=== PATIENT | male | born 1990 | race Caucasian/White ===

== ENCOUNTER 2017-09-29 02:51 | Emergency (ER) | payer SELFPAY ==
[~2017-09-29] VITALS: Ht 177.8 cm; Wt 103.1 kg
[2017-09-29 03:21] LABS: HEMATOCRIT 39.2 % (38.0-50.0); HEMOGLOBIN 13.9 G/DL (12.5-16.6); MCH 29.6 PG (29.0-34.0); MCHC 35.5 G/DL (30.0-36.0); MCV 83.4 FL (86-99); PLATELET COUNT 177 K/uL (156-360); RBC DIS.WIDTH-CV 12.6 % (11.8-14.6); RBC DIS.WIDTH-SD 38.3 % (39-53); WHITE BLOOD COUNT 9.9 K/uL (4.1-10.2)
[2017-09-29 03:31] LABS: ALBUMIN 4.5 g/dL (3.2-4.8); CHLORIDE 106 mEq/L (99-109); POTASSIUM 3.8 mEq/L (3.7-5.4); SODIUM 142 mEq/L (136-147)
[2017-09-29 03:34] LABS: GLUCOSE 111 mg/dL (70-99); TOTAL PROTEIN 7.9 g/dL (6.4-8.3)
[2017-09-29 03:35] LABS: TOTAL BILIRUBIN 0.3 mg/dL (0.0-1.0)
[2017-09-29 03:37] LABS: ALKALINE PHOSPHATASE 75 IU/L (3-129); CREATININE 1.3 mg/dL (0.6-1.3); GFR ESTIMATE (CALCULATED) > 59 mL/min/ (58.99-99999)
[2017-09-29 03:38] LABS: UREA NITROGEN (BUN) 22 mg/dL (9-23)
[2017-09-29 03:39] LABS: AST (GOT) 26 IU/L (2-34)
[2017-09-29 03:40] LABS: ALT (GPT) 45 IU/L (3-49)
[2017-09-29 03:40] LABS: APPEARANCE CLEAR ((CLEAR)); BILIRUBIN NEGATIVE; BLOOD LARGE; COLOR STRAW ((YELLOW)); GLUCOSE (STRIP) NEGATIVE; KETONES NEGATIVE; LEUKOCYTES NEGATIVE; NITRITE NEGATIVE; PROTEIN (STRIP) NEGATIVE; SPECIFIC GRAVITY 1.018 (1.000-1.030); UROBILINOGEN 0.2 MG/DL (0.2-1.0)
[2017-09-29 03:45] LABS: BACTERIA NONE SEEN /HPF; EPITHELIAL CELLS NONE SEEN /HPF; MUCUS TRACE /LPF; RED BLOOD CELLS TNTC /HPF (0-5); UCUL ADDED? YES; WHITE BLOOD CELLS 0-5 /HPF (0-5)
[2017-09-29 06:03] LABS: LIPASE 24 U/L (1.0-51.0)
[2017-09-29] MEDS ORDERED: ZOFRAN ODT8 MG PO (06:25)
[2017-09-29] MEDS ORDERED: MOTRIN800 MG PO (06:25)
[2017-09-29] MEDS ORDERED: FLOMAX0.4 MG PO (06:25)
[2017-09-29] MEDS ORDERED: NORCO 7.5/321 TABLET PO (06:25)
[2017-09-29 06:33] VITALS: BP 155/89
== END 2017-09-29 06:34 | disposition home or self-care (01) ==
LOC: EME 02:51
DX: N13.2 Hydronephrosis with renal and ureteral calculous obstruction (principal); R11.2 Nausea with vomiting, unspecified; K42.9 Umbilical hernia without obstruction or gangrene
CPT/HCPCS: 74176; 80053; 81003; 83690; 85027; 87086; 99281; 99284; J1885